=== PATIENT | male | born 1970 | race Caucasian/White ===

== ENCOUNTER 2020-07-06 11:51 | Day surgery (SDC) | payer OTHER ==
[2020-06-29 15:30] LABS: BASOPHILS # (AUTO) 0.1 X10'3 (0-0.2); BASOPHILS % (AUTO) 0.9 % (0-1); EOSINOPHILS % (AUTO) 0.4 % (0-6); LYMPHOCYTES # (AUTO) 3.2 X10'3 (1.1-4.8); MEAN CORPUSCULAR HEMOGLOBIN 29.3 PG (27.0-31.0); MEAN CORPUSCULAR HGB CONC 33.6 g/dL (33.0-36.5); MEAN CORPUSCULAR VOLUME 87.2 FL (78-98); MEAN PLATELET VOLUME 9.3 FL (7.4-10.4); MONOCYTES # (AUTO) 0.8 X10'3 (0-0.9); MONOCYTES % (AUTO) 7.6 % (2-12); NEUTROPHILS # (AUTO) 6.4 X10'3 (1.8-7.7); NEUTROPHILS % (AUTO) 61.1 % (42-75); PRE OP HEMATOCRIT 46.6 % (42.0-52.0); PRE OP HEMOGLOBIN 15.7 g/dL (14.0-17.9); PRE OP PLATELET COUNT 185 X10'3 (140-440); RED BLOOD COUNT 5.34 X10'6 (4.70-6.10)
[2020-06-29 15:40] LABS: CLARITY,URINE CLEAR (Clear); COLOR,URINE YELLOW (Yellow); GLUCOSE, URINE NEGATIVE (Neg); KETONES,URINE NEGATIVE (Neg); LEUKOCYTE ESTERASE ,URINE NEGATIVE (Neg); NITRITES, URINE NEGATIVE (Neg); OCCULT BLOOD,URINE NEGATIVE (Neg); PH,URINE 5.5 (4.8-8.0); PROTEIN,URINE 30 mg/dl (Neg); UROBILINOGEN,URINE 0.2 E.U/dL (0.2-1.0)
[2020-06-29 15:43] LABS: UA COLLECTION TYPE CLN CATCH MIDSTREAM
[2020-06-29 15:49] LABS: BACTERIA,URINE FEW /HPF (Neg); MUCUS STRANDS MODERATE /LPF (Neg); RBC,URINE NONE SEEN /HPF (0-2); SQUAMOUS EPITHELIAL CELL,UR FEW /LPF (FEW); WBC CLUMPS,URINE FEW /HPF (NEGATIVE)
[2020-06-29 15:51] LABS: ALBUMIN 4.9 G/DL (3.4-5.0); ALBUMIN/GLOBULIN RATIO 1.4 (1.1-1.5); ALKALINE PHOSPHATASE 70 IU/L (46-116); BLOOD UREA NITROGEN 11 MG/DL (7-18); BUN/CREATININE RATIO 10.7 (5.4-32.0); CALCIUM 9.4 MG/DL (8.5-10.1); CHLORIDE 103 MMOL/L (99-107); CREATININE 1.03 MG/DL (0.60-1.10); PRE OP ALT 57 U/L (30-65); PRE OP ANION GAP 10 (8-16); PRE OP AST 32 U/L (10-37); PRE OP BILIRUB, TOTAL 0.5 MG/DL (0.0-1.0); PRE OP GLUCOSE 82 MG/DL (70-104); PRE OP POTASSIUM 3.7 MMOL/L (3.4-5.1); PRE OP SODIUM 142 MMOL/L (135-145); TOTAL CARBON DIOXIDE 29.4 MMOL/L (24-32); TOTAL PROTEIN 8.4 G/DL (6.4-8.2); eGFR 76 ML/MIN
[~2020-07-06] VITALS: Ht 190.5 cm; Wt 137.9 kg
[2020-07-06] VITALS (9 sets, daily range): BP systolic 104–126; BP diastolic 56–80
[~2020-07-06 11:51] MED LIST: CHOLESTEROL PO; LORA-660 PO; ceFAZolin inj. 3,000 MG in normal saline 100ml IV soln 100 ML IV ONE; famotidine 20mg tablet PO ONE; ringers solution, lacted 1,000 ML IV SCH
[2020-07-06] MEDS ORDERED: ATOR20TA66 PO (12:55)
[2020-07-06] MEDS ORDERED: MIDAZolam 5mg/5ml vial ONE (13:36)
[2020-07-06] MEDS ORDERED: fentaNYL/PF 50MCG/1 ML 2ML syringe ONE ×2 (13:37→14:30)
[2020-07-06] MEDS ORDERED: ROPIVAcaine 0.5% (5mg/ml) 30ml vial ONE ×2 (13:39→16:46)
[2020-07-06] MEDS ORDERED: succinylcholine 20mg/ml inj IV ONE (13:39)
[2020-07-06] MEDS ORDERED: LIDOcaine 2% (20mg/ml) 5ml vial ONE (13:39)
[2020-07-06] MEDS ORDERED: propofol inj 20 ML IV ONE (13:39)
[2020-07-06] MEDS ORDERED: sevoflurane 250ml liquid IH ONE (13:52)
[2020-07-06] MEDS ORDERED: rocuronium 10mg/ml inj IV ONE (13:52)
[2020-07-06] MEDS ORDERED: bacitracin 15gm ointment TP ONE (15:09)
--- NOTE | 2020-07-06 15:20 | NUR ---
Received from OR via , accompanied by Anesthesiologist DR GUILLERMO and report given by Anesthesiolgist. AWAKENS TO VOICE. VITALS STABLE. DRESSING DI. MARILYN PAIN. DRESSING DI. TOES WAR, AND PINK.
[2020-07-06] MEDS ORDERED: meperidine/PF 25mg/ml syringe IV PRN ×3 (15:40)
[2020-07-06] MEDS ORDERED: morphine 2 MG/ML inj. syringe IV PRN (15:40)
[2020-07-06] MEDS ORDERED: proCHLORperazine 10 MG/2 ml inj IV PRN (15:40)
[2020-07-06] MEDS ORDERED: ondansetron/PF 4mg/2ml inj IV PRN (15:40)
[2020-07-06] MEDS ORDERED: morphine 4 MG/ML inj SYRINge IV PRN (15:40)
[2020-07-06] MEDS ORDERED: ringers solution, lacted 1,000 ML IV SCH (15:40)
[2020-07-06] MEDS ORDERED: HYDROcodone/acetaminophen 10/325mg tab PO ONE (15:55)
--- NOTE | 2020-07-06 16:20 | NUR ---
AWAKE AND ORIENTED. VITALS STABLE. DRESSING DI. MARILYN PAIN. HOME WITH SURGICAL BOOT ON WITH HIS SPOUSE.
[2020-07-06] MEDS ORDERED: ondansetron/PF 4mg/2ml inj ONE (16:46)
[2020-07-06] MEDS ORDERED: glycopyrrolate 0.2mg/ml inj ONE (16:46)
[2020-07-06] MEDS ORDERED: neostigmine methylsulfate 1 MG/ML 10ml vial ONE (16:46)
[2020-07-06] MEDS ORDERED: ePHEDrine 50MG/ML INJ. ONE (16:47)
[2020-07-06] MEDS ORDERED: dexamethasone sod phosphate 4mg/ml inj. ONE (16:47)
== END 2020-07-06 16:20 | disposition home or self-care (01) ==
LOC: PAS 11:51
PROVIDERS: ATTEND Podiatrist Foot & Ankle Surgery
DX: S93.322A Subluxation of tarsometatarsal joint of left foot, initial encounter (principal); E66.9 Obesity, unspecified; Z68.38 Body mass index [BMI] 38.0-38.9, adult; G89.18 Other acute postprocedural pain; Z98.890 Other specified postprocedural states; Z72.89 Other problems related to lifestyle; Z87.891 Personal history of nicotine dependence; Z20.828 Contact with and (suspected) exposure to other viral communicable diseases; Z79.899 Other long term (current) drug therapy; X58.XXXA Exposure to other specified factors, initial encounter; Y93.89 Activity, other specified; Y92.89 Other specified places as the place of occurrence of the external cause; Y99.8 Other external cause status
CPT/HCPCS: 28615; 36415; 64447; 64450; 73620; 76000; 76942; 80053; 81001; 82948; 85025; 87088; 87635; 93005; A6223; C1713; J0330; J0690; J1100; J2001; J2250; J2405; J2704; J2710; J3010; A4215; A4618; A6449; A7000; J2795; J3490; J7120

== ENCOUNTER 2024-02-13 13:15 | Emergency (ER) | payer MEDICAID, OTHER ==
[~2024-02-13 13:15] MED LIST changes: +ATOR20TA66 PO; -CHOLESTEROL PO; +LORA-657 PO; -LORA-660 PO; -ceFAZolin inj. 3,000 MG in normal saline 100ml IV soln 100 ML IV ONE; -famotidine 20mg tablet PO ONE; -ringers solution, lacted 1,000 ML IV SCH
== END 2024-02-13 13:51 | disposition home or self-care (01) ==
LOC: ER 13:16
DX: L08.9 Local infection of the skin and subcutaneous tissue, unspecified (principal); Z53.21 Procedure and treatment not carried out due to patient leaving prior to being seen by health care provider